=== PATIENT | male | born 1975 | race Caucasian/White ===

== ENCOUNTER 2021-09-21 01:44 | Emergency (ER) | payer SELFPAY ==
[~2021-09-21] VITALS: Ht 170.2 cm; Wt 78.0 kg
[2021-09-21 02:23] VITALS: BP 157/90
== END 2021-09-22 03:39 | disposition left against medical advice (07) ==
LOC: ER 01:44
DX: Z53.21 Procedure and treatment not carried out due to patient leaving prior to being seen by health care provider (principal)